=== PATIENT | female | born 1955 | race Caucasian/White ===

== ENCOUNTER 2019-04-14 16:14 | Emergency (ER) | payer OTHER ==
--- NOTE | 2019-04-14 16:48 | RAD REPORT ---
EXAM DESCRIPTION: CT - Ct Stroke Brain Wo Cont - 04/14/2019 4:41 pm CLINICAL HISTORY: Acute onset altered mental status, loss of memory CLINICAL HISTORY: None. TECHNIQUE: Axial 5 millimeter thick images of the head were obtained without IV contrast. All CT scans are performed using dose optimization technique as appropriate and may include automated exposure control or mA/KV adjustment according to patient size. FINDINGS: No intracranial hemorrhage, mass, or cerebral edema. No acute infarction identifiable. Mil d atrophy and chronic ischemic changes are present. Right-sided basal ganglia perivascular space note d. Physiologic and arterial tree calcifications are present. Ventricles are in proportion to volume l oss. Newsome matter-white matter differentiation is preserved. Visualized portions of the mastoid air cells, paranasal sinuses, and orbits are unremarkable. Findings telephoned to the referring clinician 1644 hours IMPRESSION: No CT evidence of acute intracranial process. Atrophy and chronic ischemic changes are present, mild in degree.
--- NOTE | 2019-04-14 16:50 | RAD REPORT ---
EXAM DESCRIPTION: RAD - Chest Single View - 04/14/2019 4:39 pm CLINICAL HISTORY: Stroke protocol chest film, acute onset altered mental status and memory loss COMPARISON: None. TECHNIQUE: AP portable chest image was obtained 1636 hours . FINDINGS: Lungs are clear. Heart and vasculature are normal. No measurable pleural effusion and no p neumothorax. No acute bony abnormality seen. No acute aortic findings suspected. IMPRESSION: No acute cardiopulmonary process.
[2019-04-14 17:01] LABS: Absolute Lymphocytes (CBC) 1.3 K/uL (0.7-4.9); Eosinophils % 4.7 % (0-4.4); Hematocrit 44.1 % (36.0-45.0); Lymphocytes % 15.8 % (15.3-44.8); MPV 8.7 fL (7.6-11.3); Monocytes % 7.5 % (3.3-12.3); RBC Red Blood Cell Count 4.99 M/uL (3.86-4.86)
[2019-04-14 17:14] LABS: Protime INR 0.91
[2019-04-14] MEDS ORDERED: NA CHLORIDE 0.9% 1,000 ML ONE (17:20)
[2019-04-14 17:40] LABS: Potassium 4.4 mmol/L (3.5-5.1); Sodium Level 139 mmol/L (136-145)
[2019-04-14 17:42] LABS: BUN Blood Urea Nitrogen 19 mg/dL (7-18); Bicarbonate 26 mmol/L (21-32); Glucose Level 252 mg/dL (74-106)
[2019-04-14 17:50] LABS: Troponin (Emerg Dept Use Only) < 0.02 ng/mL (0.0-0.045)
--- NOTE | 2019-04-14 17:55 | EDPHYS ---
Physician Documentation [facility] Name: Samson Siddiqui Age: 63 yrs Sex: Female : 1955 Arrival Date: 04/14/2019 Time: 16:23 Bed 30 Private MD: ED Physician Joshua Pacheco HPI: 04/14 17:51 This 63 yrs old Female presents to ER via EMS with complaints of dizziness. ma2 17:51 Onset: The symptoms/episode began/occurred gradually, 1 day(s) ago. Context: occurred ma2 at work. Associated signs and symptoms: Pertinent negatives: blurred vision, combativeness, diaphoresis, numbness, seizure. Severity of symptoms: At their worst the symptoms were moderate in the emergency department the symptoms have resolved. The patient has not experienced similar symptoms in the past. Historical: - Allergies: 16:35 Cipro PO; mg2 - Immunization history:: Flu vaccine status is unknown. - Social history:: Smoking status: Patient/guardian denies using tobacco, Patient/guardian denies using alcohol, street drugs, IV drugs, Patient/guardian denies using The patient lives alone. - Ebola Screening: : No symptoms or risks identified at this time. - Family history:: not pertinent. ROS: 17:51 Constitutional: Negative for fever, chills, and weight loss, Cardiovascular: Negative ma2 for chest pain, palpitations, and edema, Respiratory: Negative for shortness of breath, cough, wheezing, and pleuritic chest pain, Abdomen/GI: Negative for abdominal pain, nausea, diarrhea, and constipation. 17:51 All other systems are negative. Exam: 17:51 Constitutional: This is a well developed, well nourished patient who is awake, alert, ma2 and in no acute distress. Head/Face: Normocephalic, atraumatic. Eyes: Pupils equal round and reactive to light, extra-ocular motions intact. Lids and lashes normal. Conjunctiva and sclera are non-icteric and not injected. Cornea within normal limits. Periorbital areas with no swelling, redness, or edema. ENT: Nares patent. No nasal discharge, no septal abnormalities noted. Tympanic membranes are normal and external auditory canals are clear. Oropharynx with no redness, swelling, or masses, exudates, or evidence of obstruction, uvula midline. Mucous membranes moist. Chest/axilla: Normal chest wall appearance and motion. Nontender with no deformity. No lesions are appreciated. Cardiovascular: Regular rate and rhythm with a normal S1 and S2. No gallops, murmurs, or rubs. Normal PMI, no JVD. No pulse deficits. Respiratory: Lungs have equal breath sounds bilaterally, clear to auscultation and percussion. No rales, rhonchi or wheezes noted. No increased work of breathing, no retractions or nasal flaring. Abdomen/GI: Soft, non-tender, with normal bowel sounds. No distension or tympany. No guarding or rebound. No evidence of tenderness throughout. Skin: Warm, dry with normal turgor. Normal color with no rashes, no lesions, and no evidence of cellulitis. MS/ Extremity: Pulses equal, no cyanosis. Neurovascular intact. Full, normal range of motion. Neuro: Awake and alert, GCS 15, oriented to person, place, time, and situation. Cranial nerves II-XII grossly intact. Motor strength 5/5 in all extremities. Sensory grossly intact. Cerebellar exam normal. Normal gait. Vital Signs: 16:32 BP 143 / 58; Pulse 95; Resp 18; Temp 98.5(O); Pulse Ox 100% on R/A; Weight 65.77 kg; mg2 Height 5 ft. 5 in. (165.10 cm); Pain 0/10; 17:38 BP 148 / 81; Pulse 93; Resp 18; Temp 98.5; Pulse Ox 98% on R/A; Pain 0/10; mg2 18:43 BP 150 / 70; Pulse 79; Resp 18; Temp 98.3; Pulse Ox 100% on R/A; Pain 0/10; mg2 16:32 Body Mass Index 24.13 (65.77 kg, 165.10 cm) mg2 MDM: 16:29 Patient medically screened. ma2 17:51 Differential diagnosis: head injury, hyperventilation, hypovolemia, syncope, vertigo. ma2 Data reviewed: vital signs, nurses notes. Counseling: I had a detailed discussion with the patient and/or guardian regarding: the historical points, exam findings, and any diagnostic results supporting the discharge/admit diagnosis, the presence of at least one elevated blood pressure reading (>120/80) during this emergency department visit, the need for outpatient follow up. Response to treatment: the patient's symptoms have resolved after treatment. 04/14 16:24 Order name: Basic Metabolic Panel; Complete Time: 17:51 [facility] [place] 04/14 16:24 Order name: CBC with Diff; Complete Time: 17:42 [facility] [place] 04/14 16:24 Order name: Protime (+inr); Complete Time: 17:42 [facility] [place] 04/14 16:24 Order name: Ptt, Activated; Complete Time: 17:42 [facility] [place] 04/14 16:24 Order name: Troponin (emerg Dept Use Only); Complete Time: 17:51 ma2 04/14 16:24 Order name: Ptt, Activated ma2 04/14 17:43 Order name: Urine Dipstick--Ancillary (enter results) em1 04/14 17:47 Order name: Urine Microscopic Only [facility] [place] 04/14 17:50 Order name: Urine Culture [facility] [place] 04/14 16:24 Order name: EKG; Complete Time: 16:25 [facility] [place] 04/14 16:24 Order name: CT Stroke Brain w/o Contrast; Complete Time: 16:52 ma2 04/14 16:24 Order name: Stroke CXR 1 View; Complete Time: 17:42 ma2 04/14 16:24 Order name: Accucheck; Complete Time: 16:54 ma2 04/14 16:24 Order name: Cardiac monitoring; Complete Time: 16:54 ma2 04/14 16:24 Order name: EKG - Nurse/Tech; Complete Time: 16:54 ma2 04/14 16:24 Order name: IV Saline Lock; Complete Time: 16:54 ma2 04/14 16:24 Order name: Labs collected and sent; Complete Time: 16:54 ma2 04/14 16:24 Order name: NPO; Complete Time: 16:54 ma2 04/14 16:24 Order name: O2 Per Protocol; Complete Time: 16:54 ma2 04/14 16:24 Order name: O2 Sat Monitoring; Complete Time: 16:54 ma2 04/14 16:24 Order name: Stroke Swallow Screen; Complete Time: 16:54 ma2 04/14 16:24 Order name: Urine Dipstick-Ancillary (obtain specimen); Complete Time: 17:38 ma2 04/14 17:12 Order name: Misc. Order: recollect BMP; Complete Time: 17:18 ss Administered Medications: 17:07 Drug: NS 0.9% 1000 ml Route: IV; Rate: 1 bolus; Site: right forearm; mg2 18:46 Follow up: Response: No adverse reaction; IV Status: Completed infusion; IV Intake: mg2 1000ml 18:10 Drug: Rocephin 1 grams Route: IV; Rate: calculated rate; Site: right forearm; mg2 18:45 Follow up: IV Status: Completed infusion; patient was nauseous after receiving the mg2 medicine 18:11 Drug: Zofran 4 mg Route: IVP; Site: right forearm; mg2 18:45 Follow up: Response: No adverse reaction; Marked relief of symptoms mg2 Point of Care Testing: Blood Glucose: 16:34 Blood Glucose: 269 mg/dL; mg2 Ranges: Critical Glucose Levels:Adult <50 mg/dl or >400 mg/dl <40 mg/dl or >180 mg/dl Disposition: 04/14/19 17:54 Discharged to Home. Impression: Cystitis, unspecified without hematuria. - Condition is Stable. - Discharge Instructions: Urinary Tract Infection, Adult. - Prescriptions for Bactrim DS 800- 160 mg Oral Tablet - take 1 tablet by ORAL route every 12 hours for 10 days; 20 tablet. - Work release form, Medication Reconciliation Form, Thank You Letter, Antibiotic Education, Prescription Opioid Use form. - Follow up: Private Physician; When: Tomorrow; Reason: Continuance of care. Signatures: Dispatcher [employer] EDYeny Dixon RN RN Joshua Pacheco MD MD fl2 Chauncey Francis RN RN mg2 Corrections: (The following items were deleted from the chart) 16:27 16:25 BASIC METABOLIC PANEL+C.LAB.BRZ ordered. EDMS EDMS 16:27 16:25 CBC+H.LAB.BRZ ordered. EDMS EDMS 16:27 16:25 PROTIME (+INR)+COAG.LAB.BRZ ordered. EDMS EDMS 16:31 16:25 CT-STROKE BRAIN W/O CONTRAST+CT.RAD.BRZ ordered. EDMS EDMS 16:38 16:25 Chest Single View+RAD.RAD.BRZ ordered. EDMS EDMS 17:07 16:24 Accucheck ordered. mg2 mg2 17:07 16:24 Cardiac monitoring ordered. mg2 mg2 17:07 16:24 EKG - Nurse/Tech ordered. mg2 mg2 17: 16:24 IV Saline Lock ordered. mg2 mg2 17: 16:24 Labs collected and sent ordered. mg2 mg2 17: 16:24 NPO ordered. mg2 mg2 17: 16:24 Oxygen Per Protocol ordered. mg2 mg2 17: 16:24 O2 Sat Monitoring ordered. mg2 mg2 : 16:24 Stroke Swallow Screen ordered. mg2 mg2 18:47 17:54 04/14/2019 17:54 Discharged to Home. Impression: Cystitis, unspecified without mg2 hematuria. Condition is Stable. Forms are Medication Reconciliation Form, Thank You Letter, Antibiotic Education, Prescription Opioid Use. Follow up: Private Physician; When: Tomorrow; Reason: Continuance of care. ma2
--- NOTE | 2019-04-14 17:55 | ER ---
Nurse's Notes [facility] Name: Samson Siddiqui Age: 63 yrs Sex: Female : 1955 Arrival Date: 04/14/2019 Time: 16:23 Bed 30 Private MD: Diagnosis: Cystitis, unspecified without hematuria Presentation: 04/14 16:15 Presenting complaint: EMS states: patient has a sudden onset of confusion or loss of mg2 memory while at work today around 4 pm.. denies chest pain or weakness. Bgl -244 mg/dl. known case of Afib. Transition of care: patient was not received from another setting of care. Onset of symptoms was April 14, 2019 at 16:00. Risk Assessment: Do you want to hurt yourself or someone else? Patient reports no desire to harm self or others. Initial Sepsis Screen: Does the patient meet any 2 criteria? No. Patient's initial sepsis screen is negative. Does the patient have a suspected source of infection? No. Patient's initial sepsis screen is negative. Care prior to arrival: None. 16:15 Method Of Arrival: EMS: [facility] mg2 16:15 Acuity: LOREN 2 mg2 Triage Assessment: 17:40 General: Appears in no apparent distress. comfortable, Behavior is calm, cooperative. mg2 Pain: Denies pain. Historical: - Allergies: 16:35 Cipro PO; mg2 - Immunization history:: Flu vaccine status is unknown. - Social history:: Smoking status: Patient/guardian denies using tobacco, Patient/guardian denies using alcohol, street drugs, IV drugs, Patient/guardian denies using The patient lives alone. - Ebola Screening: : No symptoms or risks identified at this time. - Family history:: not pertinent. Screenin:53 Abuse screen: Denies threats or abuse. Denies injuries from another. Nutritional mg2 screening: No deficits noted. Tuberculosis screening: No symptoms or risk factors identified. Fall Risk IV access (20 points). 16:55 VAN Screening: Arm Drift: Patient shows no arm weakness. Patient is VAN negative. mg2 Visual Disturbance: No visual disturbance noted. Aphasia: No aphasia noted. Neglect: No neglect noted. Patient has been NPO before screening. The patient is alert, able to follow commands. The patient does not exhibit slurred or garbled speech The patient is exhibiting difficulty speaking. The patient does not exhibit difficulty understanding words. The patient is able to swallow own secretions with no drooling or need for suction. Patient tolerated one teaspoon of water. No drooling, immediate coughing, gurgling, or clearing of the throat was noted. The patient tolerated 90mL of water. No drooling, immediate coughing, gurgling, or clearing of the throat was noted. The patient passed the bedside swallow screening. Oral medications may be given as ordered. Contact Physician for further diet orders. Provider notified of bedside swallow screening results: Joshua Pacheco MD. Assessment: 16:20 Reassessment: dr herring was informed about the patient and said no need to call for mg2 code stroke. patient is improving but just do the stroke protocol. Pain: Denies pain. 17:40 General: Appears in no apparent distress. comfortable, Behavior is calm, cooperative. mg2 Neuro: Level of Consciousness is awake, alert, obeys commands, Oriented to person, place, time, situation, Cake Puller are equal bilaterally Moves all extremities. Full function Gait is steady, Speech is normal, Intact Reports confusion. Cardiovascular: Capillary refill < 3 seconds Patient's skin is warm and dry. 18:11 Respiratory: Airway is patent Respiratory effort is even, unlabored, Respiratory mg2 pattern is regular, symmetrical. GI: No deficits noted. GI: Reports nausea. : Urine is pls see urine dip. EENT: No signs and/or symptoms were reported regarding the EENT system. Derm: Skin is intact, is healthy with good turgor, Skin is pink, warm \T\ dry. normal. Musculoskeletal: Circulation, motion, and sensation intact. Capillary refill < 3 seconds. 18:13 Reassessment: patient up for discharge after completing the iv fluid. mg2 18:42 Reassessment: Patient states feeling better. Patient states symptoms have improved. mg2 Vital Signs: 16:32 BP 143 / 58; Pulse 95; Resp 18; Temp 98.5(O); Pulse Ox 100% on R/A; Weight 65.77 kg; mg2 Height 5 ft. 5 in. (165.10 cm); Pain 0/10; 17:38 BP 148 / 81; Pulse 93; Resp 18; Temp 98.5; Pulse Ox 98% on R/A; Pain 0/10; mg2 18:43 BP 150 / 70; Pulse 79; Resp 18; Temp 98.3; Pulse Ox 100% on R/A; Pain 0/10; mg2 16:32 Body Mass Index 24.13 (65.77 kg, 165.10 cm) mg2 ED Course: 16:17 Inserted saline lock: 20 gauge in right forearm, using aseptic technique. Blood mg2 collected. 16:23 Patient arrived in ED. mg2 16:23 Chauncey Francis, HUGO is Primary Nurse. mg2 16:23 Joshua Pacheco MD is Attending Physician. ma2 16:32 Triage completed. mg2 16:33 No provider procedures requiring assistance completed. mg2 16:37 X-ray completed. Portable x-ray completed in exam room. Patient tolerated procedure ml well. 16:38 Stroke CXR 1 View In Process Unspecified. EDMS 16:42 CT Stroke Brain w/o Contrast In Process Unspecified. EDMS 16:53 Arm band placed on. mg2 16:55 Patient has correct armband on for positive identification. 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 Pulse mg2 ox on. NIBP on. Door closed. Warm blanket given. 18:42 IV discontinued, intact, bleeding controlled, No redness/swelling at site. Pressure mg2 dressing applied. Administered Medications: 17:07 Drug: NS 0.9% 1000 ml Route: IV; Rate: 1 bolus; Site: right forearm; mg2 18:46 Follow up: Response: No adverse reaction; IV Status: Completed infusion; IV Intake: mg2 1000ml 18:10 Drug: Rocephin 1 grams Route: IV; Rate: calculated rate; Site: right forearm; mg2 18:45 Follow up: IV Status: Completed infusion; patient was nauseous after receiving the mg2 medicine 18:11 Drug: Zofran 4 mg Route: IVP; Site: right forearm; mg2 18:45 Follow up: Response: No adverse reaction; Marked relief of symptoms mg2 Point of Care Testing: Blood Glucose: 16:34 Blood Glucose: 269 mg/dL; mg2 Ranges: Intake: 18:46 IV: 1000ml; Total: 1000ml. mg2 Outcome: 17:54 Discharge ordered by . ma2 18:43 Discharged to home ambulatory, with family. mg2 18:43 Condition: stable 18:43 Discharge instructions given to patient, family, Instructed on discharge instructions, follow up and referral plans. medication usage, Demonstrated understanding of instructions, follow-up care, medications, Prescriptions given X 1. 18:47 Patient left the ED. mg2 Signatures: Dispatcher [employer] Tasia Cadena Mohammad, MD MD ma2 Chauncey Francis RN RN mg2
[2019-04-14] MEDS ORDERED: CEFTRIAXONE/SWI 1gm 1 GM/10 ML SYR ONE (18:14)
[2019-04-14] MEDS ORDERED: ONDANSETRON 4 MG/2 ML VIAL ONE (18:24)
[2019-04-14 18:25] LABS: Urine Bacteria 20-50 /HPF (<20); Urine Culture Reflex Order NOT NEEDED
[2019-04-14 19:19] LABS: Urine Blood 1+ (NEG); Urine Glucose TRACE (NEG); Urine Protein TRACE (NEG); Urine Specific Gravity <1.005 (1.005-1.030)
--- NOTE | 2019-04-15 06:54 | EKG ---
Test Date: 2019-04-14 Test Time: 16:30:24 Physical Therapy Teacher: STEFF MEASUREMENT RESULTS: Intervals: Rate: 90 WV: QRSD: 82 QT: 348 QTc: 425 Weinert: P: WV: QRS: 56 T: 112 INTERPRETIVE STATEMENTS: Atrial fibrillation Septal infarct, age undetermined Abnormal ECG No previous ECG available for comparison Electronically Signed On 04-15-19 06:53:11 CDT by Benedict Dubois
== END 2019-04-14 18:47 | disposition home or self-care (01) ==
LOC: ER 16:14
DX: N30.90 Cystitis, unspecified without hematuria (principal); Z88.8 Allergy status to other drugs, medicaments and biological substances
CPT/HCPCS: 96365; 96361; 93005; 87088; 85025; 87086; 80048; 36415; 85610; 82962; 85730; 84484; 70450; 71045; 96375; 99285; J0696; J7030; J2405; 81003; 81015